=== PATIENT | female | born 1970 | race Caucasian/White ===

== ENCOUNTER 2025-04-26 09:38 | Emergency (ER) | payer SELFPAY ==
[2025-04-26 10:18] VITALS: BP 111/77; PULSE 83; RESP 19; TEMP 36.7; O2SAT 97; BMI 34.0
--- NOTE | 2025-04-26 10:34 | XR_ITS ---
Lumbar spine 3 views Technique: AP lateral coned lateral lower lumbar spine 3 views Date and time: April 26, 2025 1049 hrs. Indications: Injury to lower back today, lower back pain. Findings: Lumbar levoscoliosis 12 degrees No lumbar fracture Mild to moderate lumbar spondylosis No significant lumbar disc narrowing Impression: No lumbar fracture
[2025-04-26] MEDS: IBUPROFEN TAB 600 MG TABLET PO (11:01)
--- NOTE | 2025-04-26 11:08 | EDNOTE_ITS ---
ED Back Injury Pain RME/HPI General Chief Complaint: Back Pain/Injury Stated Complaint: Left back pain goes into left hip/left leg Time Seen by Provider: 04/26/25 10:12 Source: patient Arrival date/time: 04/26/25 09:38 This is a 54-year-old female presents to the emergency department complaints of lower lumbar back pain. 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 Patient reports the patient startled himself while moving causing her to have pain. She immediately left work for evaluation here in the emergency department. No medication prior to ED arrival. No other concerns reported. No fever no dysuria. Mode of arrival: ambulatory Related Data Home Medications ?Medication ?Instructions ?Recorded ?Confirmed fluoxetine 20 mg capsule (Prozac) 20 mg PO QDAY 03/13/21 Previous Rx's ?Medication ?Instructions ?Recorded ciprofloxacin HCl 500 mg tablet 500 mg PO BID #6 tabs 03/17/21 (Cipro) cyclobenzaprine 5 mg tablet 5 mg PO Q8H PRN muscle spa sm #20 04/26/25 tabs Allergies Allergy/AdvReac Type Severity Reaction Status Date / Time latex Allergy Severe Swelling Verified 04/26/25 09:42 of Lip/Tongue/Throat Sulfa (Sulfonamide Allergy Severe Swelling Verified 04/26/25 09:42 Antibiotics) of Lip/Tongue/Throat acetaminophen (From Tylenol) Allergy Verified 04/26/25 09:42 Review of Systems Review of Systems Systems Reviewed: All systems reviewed, normal except as documented Narrative Review of Systems: Gen: No fever, no chills, no weight loss EYES: No discharge, no visual changes, no pain HEENT: No ear pain, no congestion, no sore throat PULM: No shortness of breath, no cough, no congestion CV: No chest pain, no dyspnea on exertion, no palpitations GI: No nausea, no vomiting, no diarrhea, no pain, no constipation : No frequency, no urgency, no dysuria Musc/skel: No joint pain, no back pain Skin: No rash Psyc: No hallucinations, no depression Heme/Lymph: No easy bleeding or bruising tendencies Neuro: No weakness, no headache ED Exam Narrative Physical exam: General: Sittiing in Exam table in no acute distress, answering questions appropriately HENT: normocephalic, atraumatic, EOMI, PERRLA, moist mucous membranes Chest: chest wall is nontender Cardiac: regular rate and rhythm, normal S1 and S2, no murmurs, rubs, or gallops, capillary refill ?2 seconds Pulmonary: clear to auscultation bilaterally, no wheezing, crackles, or rhonchi Abdominal: active bowel sounds, soft, nontender, nondistended Neuro: A&OX3, CN II-XII intact, sensation grossly intact bilaterally in UE and LE. Skin: no rashes, no ecchymosis Ext: + Mild paraspinal tenderness. Course Quality Measures none Orders Category Date Time Status XR lumbar spine 2-3V Stat Exams 04/26/25 10:34 Completed CYCLObenzaPRINE [Flexeril] Med 04/26/25 10:34 Discontinued 5 mg PO X1 ONE Ibuprofen Tab [Motrin Tab] Med 04/26/25 10:34 Discontinued 600 mg PO X1 ONE Vital Signs Vital signs: Vital Signs Temperature 98.0 F 04/26/25 10:18 Pulse Rate 83 04/26/25 10:18 Respiratory Rate 19 04/26/25 10:18 Blood Pressure 111/77 04/26/25 10:18 Pulse Oximetry (%) 97 04/26/25 10:18 Oxygen Delivery Method Room Air 04/26/25 10:18 Back Pain / Injury MDM Narrative MDM Narrative:: No fever, weakness, abdominal pain, saddle anesthesia, bowel/bladder incontinence noted. No hx of IVDA. Gait and sensation intact. No signs of emergent pathology at this time. Low suspicion for emergent etiology such as epidural abscess or spinal cord compression/cauda equina. Exam is consistent with musculoskeletal back pain. I did not order XRs because no trauma or injuries and based on history, it's chronic pain. Gave meds while in ED. Pain went from 10 to 5 after meds. Vitals improved as well. Likely chronic back pain Patient data External records reviewed:: [facility] previous records Clinical information provided by:: patient Social determinants that could affect healthcare access:: housing Patient has the following chronic illnesses:: no How is presenting disease/condition affected by chronic disease/condition?: exacerbated by Evaluation data The following diagnostics were reviewed and interpreted by me:: radiology exam(s) Lab and/or radiology exams considered but not ordered:: no Interpretation Summary: Lumbar spine 3 views Technique: AP lateral coned lateral lower lumbar spine 3 views Date and time: April 26, 2025 1049 hrs. Indications: Injury to lower back today, lower back pain. Findings: Lumbar levoscoliosis 12 degrees No lumbar fracture Mild to moderate lumbar spondylosis No significant lumbar disc narrowing Impression: No lumbar fracture Medications / Prescriptions Medications or Prescriptions considered but not ordered:: No Medication administrations:: Medication Administration History Discontinued Medications Cyclobenzaprine HCl (Cyclobenzaprine 5 Mg Tablet) 5 mg PO X1 ONE Stop: 04/26/25 10:35 Last Admin: 04/26/25 11:01 Dose: 5 mg Documented By: RAJWINDER Ibuprofen (Ibuprofen Tab 600 Mg Tablet) 600 mg PO X1 ONE Stop: 04/26/25 10:35 Last Admin: 04/26/25 11:01 Dose: 600 mg Documented By: RAJWINDER All medications administered and effective Consultations Consultation(s) initiated? (list below): No Diagnosis Differential diagnosis back pain/injury: lumbar radiculopathy, sciatica, strain of lumbar region and thoracic back pain Most likely diagnosis given after review of the tests above:: Strain to lumbar back. Admission Indicated Admission indicated?: not indicated Admission Request Was there a request for admission?: No Disposition Plan Disposition Plan: Discharge Discharge Attestation Discharge Attestation: The patient and all family members were given an opportunity to ask questions and understood the discharge instructions. Discharge instructions specifically effects, indications for sooner follow up or return to the emergency department, and the expected course of current diagnosis. Patient condition: Stable Discharge Plan Plan Patient Disposition: HOME (Self Care) Patient condition on transfer: Stable Prescriptions/Referrals Prescriptions/Med Rec: New cyclobenzaprine 5 mg tablet 5 mg PO Q8H PRN (Reason: muscle spasm) Qty: 20 0RF No Action fluoxetine [Prozac] 20 mg Capsule 20 mg PO QDAY ciprofloxacin HCl [Cipro] 500 mg tablet 500 mg PO BID Qty: 6 0RF Referrals: Grey Tapia PA-C [Primary Care Provider] - In 1 week Problem List Clinical Impression: Strain of lumbar region Patient/Caregiver Discharge Instructions Discharge Activity: activity as tolerated Education Materials: ED Back Sprain/Strain Additional Instructions: Make sure you follow-up with your primary doctor. Relaxers and NSAID were sent to the pharmacy. Return to the emergency department as any worsening symptoms and condition. Print Language: Iraqi Stand Alone Forms: Karishma Award Info., Work/School Release, Patient Portal Info Letter PA/PARACHUTE HARNESS RIGGER Supervising Physician PA/[employer]ACHUTE HARNESS RIGGER Supervising Physician: Dr pena
== END 2025-04-26 12:43 | disposition home or self-care (01) ==
PROVIDERS: Emergency Provider Family Medicine; PCP Physician Assistant
DX: S39.012A Strain of muscle, fascia and tendon of lower back, initial encounter (principal); X50.0XXA Overexertion from strenuous movement or load, initial encounter; Y93.F9 Activity, other caregiving; Y99.0 Civilian activity done for income or pay
CPT/HCPCS: 72100; 99283; A9270

== ENCOUNTER 2025-10-05 21:40 | Emergency (ER) | payer MEDICAID, SELFPAY ==
[2025-10-05 21:42] VITALS: BMI 28.3
[2025-10-05 22:04] VITALS: BP 117/65; PULSE 115; RESP 18; TEMP 37.8; O2SAT 97
[2025-10-05 22:27] VITALS: TEMP 37.8
[2025-10-05] MEDS: ACETAMINOPHEN 500 MG TABLET 1000 MG PO (22:27)
--- NOTE | 2025-10-05 23:45 | PD.EDURI ---
Upper Respiratory Inf. RME/HPI General Chief Complaint: Flu Like Symptoms Stated Complaint: FEVER ,RUNNY NOSE,BODYACHES Time Seen by Provider: 10/05/25 22:16 Source: patient Arrival date/time: 10/05/25 21:40 Mode of arrival: ambulatory Limitations: no limitations RME / HPI RME / HPI Narrative: This patient is a 55-year-old female who arrives to the ED today with complaints of intermittent fevers with runny nose and generalized bodyaches for the past 2 days. Patient states that the symptoms came on and have been relatively unrelenting. Patient denies any nausea vomiting or diarrhea. Patient states that her body aches and that it makes it difficult to sleep. Patient was tachycardic and had an elevated temperature at arrival. Related Data Home Medications ?Medication ?Instructions ?Recorded ?Confirmed fluoxetine 20 mg capsule (Prozac) 20 mg PO QDAY 04/20/19 03/13/21 Previous Rx's ?Medication ?Instructions ?Recorded ciprofloxacin HCl 500 mg tablet 500 mg PO BID #6 tabs 03/17/21 (Cipro) cyclobenzaprine 5 mg tablet 5 mg PO Q8H PRN muscle spasm #20 04/26/25 tabs acetaminophen 500 mg tablet 500 mg PO Q4H PRN fever or pain 10/05/25 (Tylenol Extra Strength) #30 tabs cetirizine 10 mg tablet (24Hour 10 mg PO QDAY PRN allergy symptoms 10/05/25 Allergy) 10 days #10 tabs ibuprofen 800 mg tablet (IBU) 800 mg PO Q8H PRN pain #20 tabs 10/05/25 Allergies Allergy/AdvReac Type Severity Reaction Status Date / Time latex Allergy Severe Swelling Verified 10/05/25 21:41 of Lip/Tongue/Throat Sulfa (Sulfonamide Allergy Severe Swelling Verified 10/05/25 21:41 Antibiotics) of Lip/Tongue/Throat acetaminophen (From Tylenol) Allergy Verified 10/05/25 21:41 Review of Systems Review of Systems Systems Reviewed: All systems reviewed, normal except as documented Past Medical History Past Medical History NEUROLOGIC: Negative Neurological Disorders or Seizures CARDIAC: Positive Hypertension; Negative Cardiac Disorders or Congestive Heart Failure RESPIRATORY: Negative Chronic Obstructive Pulmonary Disease (COPD) or Asthma GASTROINTESTINAL: Negative Gastrointestinal Disorders GENITOURINARY: Negative Genitourinary Disorders or Renal Disease REPRODUCTIVE: Positive Endometriosis ENDOCRINE: Negative Endocrine Disorders, Diabetes Mellitus Type 1 or Diabetes Mellitus Type 2 HEMATOLOGIC: Negative Blood Disorders or Sickle Cell Disease PSYCHO/SOCIAL: Positive Depression and Anxiety OTHER HISTORY: Negative Blood Transfusions, Blood Transfusion Reaction or Anesthesia Reactions Family History FAMILY HISTORY: Negative Family Cardiac Disorders Social History SMOKING STATUS: Never smoker SUBSTANCE USE: does not use ED Exam General Limitations: Present no limitations General appearance: Present alert and in distress (Distress due to body ache concerns.) Head Head exam: Present atraumatic Eye Eye exam: Present normal appearance, PERRL and EOMI ENT ENT exam: Present normal exam, normal oropharynx and mucous membranes moist Neck Neck exam: Present normal inspection, full ROM and trachea midline Chest Chest inspection: Present normal inspection and symmetric chest wall rise Respiratory Respiratory exam: Present normal lung sounds bilaterally Cardiovascular Cardiovascular exam: Present regular rate, normal rhythm and normal heart sounds Abdominal Exam Abdominal exam: Present soft and normal bowel sounds Extremities Exam Extremities exam: Present normal inspection and full ROM Back Exam Back exam: Present normal inspection and full ROM Neurological Exam Neurological exam: Present alert, oriented X3 and CN II-XII intact Psychiatric Psychiatric exam: Present normal affect and normal mood Skin Skin exam: Present warm, dry, intact and normal color Course Quality Measures none Orders Category Date Time Status Bedside COVID-19 Antigen Test NOW Care 10/05/25 22:22 Active Bedside Influenza A&B Antigen Test NOW Care 10/05/25 22:22 Completed Acetaminophen Tab [Tylenol ES Tab] Med 10/05/25 22:30 Discontinued 1,000 mg PO X1 ONE As noted above Vital Signs Vital signs: Vital Signs Temperature 100.1 F 10/05/25 22:04 Pulse Rate 115 H 10/05/25 22:04 Respiratory Rate 18 10/05/25 22:04 Blood Pressure 117/65 10/05/25 22:04 Pulse Oximetry (%) 97 10/05/25 22:04 Oxygen Delivery Method Room Air 10/05/25 22:04 As noted above Upper Respiratory Infection MDM Narrative MDM Narrative:: All studies performed in the ED were evaluated by me personally. Swab studies were unremarkable for any systemic concerns. Patient appears to be suffering from a viral illness. Advised Tylenol and/or Motrin as needed for symptomatic relief as well as good hydration and healthy nutrition. Patient data External records reviewed:: [facility] previous records Clinical information provided by:: patient Social determinants that could affect healthcare access:: none Patient has the following chronic illnesses:: None How is presenting disease/condition affected by chronic disease/condition?: no chronic disease Evaluation data The following diagnostics were reviewed and interpreted by me:: lab results Lab and/or radiology exams considered but not ordered:: None Interpretation Summary: Unremarkable Medications / Prescriptions Medications or Prescriptions considered but not ordered:: None Medication administrations:: Medication Administration History Discontinued Medications Acetaminophen (Acetaminophen 500 Mg Tablet) 1,000 mg PO X1 ONE Stop: 10/05/25 22:31 Last Admin: 10/05/25 22:27 Dose: 1,000 mg Documented By: OA As noted above Consultations Consultation(s) initiated? (list below): No Diagnosis Upper Respiratory Differential Diagnosis: upper respiratory infection and influenza Most likely diagnosis given after review of the tests above:: Viral upper respiratory illness Admission Indicated Admission indicated?: not indicated Explain why admission is indicated or not indicated:: Unwarranted Admission Request Was there a request for admission?: No Disposition Plan Disposition Plan: Discharge Discharge Attestation Discharge Attestation: The patient and all family members were given an opportunity to ask questions and understood the discharge instructions. Discharge instructions specifically effects, indications for sooner follow up or return to the emergency department, and the expected course of current diagnosis. Patient condition: Stable Discharge Plan Plan Patient Disposition: HOME (Self Care) Prescriptions/Referrals Prescriptions/Med Rec: New acetaminophen [Tylenol Extra Strength] 500 mg tablet 500 mg PO Q4H PRN (Reason: fever or pain) Qty: 30 0RF ibuprofen [IBU] 800 mg tablet 800 mg PO Q8H PRN (Reason: pain) Qty: 20 0RF cetirizine [24Hour Allergy] 10 mg tablet 10 mg PO QDAY PRN (Reason: allergy symptoms) 10 Days Qty: 10 0RF No Action fluoxetine [Prozac] 20 mg Capsule 20 mg PO QDAY ciprofloxacin HCl [Cipro] 500 mg tablet 500 mg PO BID Qty: 6 0RF cyclobenzaprine 5 mg tablet 5 mg PO Q8H PRN (Reason: muscle spasm) Qty: 20 0RF Referrals: No Primary/Family,Physician [Primary Care Provider] - In 1 week Problem List Clinical Impression: Upper respiratory infection Patient/Caregiver Discharge Instructions Education Materials: ED URI, Viral, No Abx (Adult) Additional Instructions: Advised Tylenol and/or Motrin as needed for fever reduction and pain relief. Patient should utilize the loratadine as directed for the next 10 days. Print Language: Ukrainian Stand Alone Forms: Karishma Award Info., Patient Portal Info Letter
[2025-10-06 00:06] VITALS: RESP 16
== END 2025-10-06 00:06 | disposition home or self-care (01) ==
PROVIDERS: Emergency Provider Physician Assistant
DX: J06.9 Acute upper respiratory infection, unspecified (principal)
CPT/HCPCS: 87502; 87635; 99282; A9270